=== PATIENT | male | born 1980 ===

== ENCOUNTER 2018-03-02 15:26 | Emergency (ER) | payer MEDICAID ==
[2018-03-02 15:26] VITALS: BMI 28.2
[2018-03-02 16:09] VITALS: BP 138/78; TEMP 97.7; O2SAT 98
--- NOTE | 2018-03-02 18:17 | ED PDOC ---
HPI: General Adult Time Seen by Provider: 03/02/18 17:12 Chief Complaint (Nursing): Cough, Cold, Congestion Chief Complaint (Provider): Cough History Per: Patient History/Exam Limitations: no limitations Onset/Duration Of Symptoms: Days (x4) Current Symptoms Are (Timing): Still Present Additional Complaint(s): 37 year old male presented to ED with complaints of productive cough with white sputum. He states that he uses promethazine with codeine which usually helps his cough. Denies hemoptysis, SOB, and fever. PCP: none provided Past Medical History Reviewed: Historical Data, Nursing Documentation, Vital Signs Vital Signs: Last Vital Signs Temp 97.7 F 03/02/18 16:06 Pulse Resp BP 138/78 03/02/18 16:06 Pulse Ox 98 03/02/18 19:29 - Medical History PMH: Anemia (transfusion x2), Anxiety, Back Problems, Colonic Polyps, Crohn's Disease, Depression, Gastritis, Malignancy, Seizures (Secondary to Xanax use) Denies: Diabetes, Hepatitis, HIV, HTN, Chronic Kidney Disease, Sexually Transmitted Disease - Surgical History Surgical History: No Surg Hx - Family History Family History: States: Unknown Family Hx - Social History Current smoker - smoking cessation education provided: Yes (>10 cigarettes daily ) Alcohol: None - Immunization History Hx Tetanus Toxoid Vaccination: No Hx Influenza Vaccination: Yes Hx Pneumococcal Vaccination: No - Home Medications Home Medications: Ambulatory Orders Medication Instructions Recorded Famotidine 20 mg PO DAILY 09/16/17 oxyCODONE/Acetaminophen [Percocet 1 tab PO Q6H 09/16/17 5/325 mg Tab] Alprazolam [Xanax] 0.5 mg PO BID 02/11/18 fentaNYL 25 mcg/hr [Duragesic 02/11/18 Patch 25 mcg/hr] Mirtazapine [Remeron] 30 mg PO HS #30 tab 02/15/18 Pantoprazole [Protonix EC Tab] 40 mg PO DAILY #30 ect 02/15/18 - Allergies Allergies/Adverse Reactions: Allergies Allergy/AdvReac Type Severity Reaction Status Date / Time ketorolac tromethamine Allergy Intermediate SWELLING Verified 03/02/18 16:06 [From Toradol] acetaminophen Allergy Mild RASH Verified 03/02/18 16:06 [From Tylenol-Codeine #3] codeine Allergy Mild RASH Verified 03/02/18 16:06 [From Tylenol-Codeine #3] tramadol AdvReac NAUSEA Verified 03/02/18 16:06 Review of Systems ROS Statement: Except As Marked, All Systems Reviewed And Found Negative Constitutional: Negative for: Fever Respiratory: Positive for: Cough (with white sputum). Negative for: Shortness of Breath, Hemoptysis Physical Exam - Reviewed Nursing Documentation Reviewed: Yes Vital Signs Reviewed: Yes - Physical Exam Appears: Positive for: Non-toxic, No Acute Distress Head Exam: Positive for: ATRAUMATIC, NORMAL INSPECTION, NORMOCEPHALIC Skin: Positive for: Normal Color, Warm, Dry Eye Exam: Positive for: Normal appearance, EOMI, PERRL ENT: Positive for: Normal ENT Inspection Neck: Positive for: Normal, Painless ROM Cardiovascular/Chest: Positive for: Regular Rate, Rhythm Respiratory: Positive for: Normal Breath Sounds Gastrointestinal/Abdominal: Positive for: Normal Exam, Soft. Negative for: Tenderness Back: Positive for: Normal Inspection. Negative for: L CVA Tenderness, R CVA Tenderness Extremity: Positive for: Normal ROM (upper/lower) Neurologic/Psych: Positive for: Alert, Oriented (x3) - ECG O2 Sat by Pulse Oximetry: 98 (RA) Pulse Ox Interpretation: Normal - Progress ED Course And Treament: Patient searched on [facility] and indicates that on 02/22, he had a prescription filled for fentanyl for 10 days. On 02/21 he had #50 of oxycodone and #20 of alprazolam 5mg prescribed. On 02/20 he had #240 and 02/06 he had #120 of promethazine with codeine prescribed. Patient receives narcotic medications on a monthly basis. Previous records indicate that on 02/11/18, he was admitted into [facility] for opioid addiction. Pt. requesting promethazine/codeine. Pt. was informed that he will be treated for his symptoms but will not be getting any narcotics. Pt. left ED irrate and refused to wait for Rx. Medical Decision Making Medical Decision Making: Initial Impression: Productive cough Initial Plan: Chest X-ray 18:22 Chest X-ray FINDINGS: LUNGS: No active pulmonary disease. PLEURA: No significant pleural effusion identified. No pneumothorax apparent. CARDIOVASCULAR: No radiographic findings to suggest acute or significant cardiovascular disease. Venous access catheters right subclavian insertion identified. The tech left is seen in the medial aspect of the left subclavian vein. OSSEOUS STRUCTURES: No significant abnormalities. VISUALIZED UPPER ABDOMEN: Normal. OTHER FINDINGS: None. IMPRESSION: No active pulmonary disease. Venous access catheter inserted venous right subclavian approach identified, the tip is in the medial aspect of the left subclavian vein. Scribe Attestation: Documented by Jorge Luis Benton acting as a scribe for Addi Jerry Provider Scribe Attestation: All medical record entries made by the Scribe were at my direction and personally dictated by me. I have reviewed the chart and agree that the record accurately reflects my personal performance of the history, physical exam, medical decision making, and the department course for this patient. I have also personally directed, reviewed, and agree with the discharge instructions and disposition. Disposition - Clinical Impression Clinical Impression: Acute bronchitis - Patient ED Disposition Is Patient to be Admitted: No - Disposition Disposition: Left W/O Treatment Disposition Time: 18:20 Condition: STABLE Forms: [employer] (Croatian)
--- NOTE | 2018-03-02 18:24 | RAD ---
HISTORY: Cough. COMPARISON: No prior. TECHNIQUE: Chest PA and lateral FINDINGS: LUNGS: No active pulmonary disease. PLEURA: No significant pleural effusion identified. No pneumothorax apparent. CARDIOVASCULAR: No radiographic findings to suggest acute or significant cardiovascular disease. Venous access catheters right subclavian insertion identified. The tech left is seen in the medial aspect of the left subclavian vein. OSSEOUS STRUCTURES: No significant abnormalities. VISUALIZED UPPER ABDOMEN: Normal. OTHER FINDINGS: None. IMPRESSION: No active pulmonary disease. Venous access catheter inserted venous right subclavian approach identified, the tip is in the medial aspect of the left subclavian vein.
== END 2018-03-02 18:45 | disposition left against medical advice (07) ==
LOC: H.ER 15:26
DX: J20.9 Acute bronchitis, unspecified (principal); F32.9 Major depressive disorder, single episode, unspecified; F41.9 Anxiety disorder, unspecified; K50.90 Crohn's disease, unspecified, without complications; Z45.2 Encounter for adjustment and management of vascular access device

== ENCOUNTER 2018-03-09 23:06 | Emergency (ER) | payer MEDICAID ==
[2018-03-09 23:06] VITALS: BMI 28.2
[2018-03-09 23:18] VITALS: BP 126/74; PULSE 84; RESP 16; TEMP 98; O2SAT 96
[2018-03-09] MEDS ORDERED: Albuterol-Ipratrop 3 mg / 0.5 (3 ml) UD INH STA (23:23)
--- NOTE | 2018-03-09 23:26 | ED PDOC ---
HPI: General Adult Time Seen by Provider: 03/09/18 23:24 Chief Complaint (Nursing): Cough, Cold, Congestion Chief Complaint (Provider): COUGH History Per: Patient (37 Y/O MALE HERE WITH COUGH X 2 WEEKS ASSOCIATED WITH FACIAL PAIN. DENIES ANY FEVERS/CHILLS. NOTES COUGHING MILDLY PRODUCTIVE WITH DISCOLORED SPUTUM. DENIES ANY H/O ALLERGIES. DENIES ANY H/O SMOKING.) Past Medical History Reviewed: Historical Data, Nursing Documentation, Vital Signs Vital Signs: Last Vital Signs Temp 98.0 F 03/09/18 23:16 Pulse 84 03/09/18 23:16 Resp 16 03/09/18 23:16 BP 126/74 03/09/18 23:16 Pulse Ox 96 03/09/18 23:26 - Medical History PMH: Anemia (transfusion x2), Anxiety, Back Problems, Colonic Polyps, Crohn's Disease, Depression, Gastritis, Malignancy, Seizures (Secondary to Xanax use) Denies: Diabetes, Hepatitis, HIV, HTN, Chronic Kidney Disease, Sexually Transmitted Disease - Family History Family History: States: Unknown Family Hx - Immunization History Hx Tetanus Toxoid Vaccination: No Hx Influenza Vaccination: Yes Hx Pneumococcal Vaccination: No - Home Medications Home Medications: Ambulatory Orders Medication Instructions Recorded Famotidine 20 mg PO DAILY 09/16/17 oxyCODONE/Acetaminophen [Percocet 1 tab PO Q6H 09/16/17 5/325 mg Tab] Alprazolam [Xanax] 0.5 mg PO BID 02/11/18 fentaNYL 25 mcg/hr [Duragesic 02/11/18 Patch 25 mcg/hr] Mirtazapine [Remeron] 30 mg PO HS #30 tab 02/15/18 Pantoprazole [Protonix EC Tab] 40 mg PO DAILY #30 ect 02/15/18 Albuterol HFA [Ventolin HFA 90 2 puff [id number] [id number] PRN #1 inh 03/09/18 mcg/actuation (8 g)] Azithromycin [Zithromax Tri-Delbert] 500 mg PO DAILY #3 tablet 03/09/18 Guaifenesin [Adult Tussin Chest 20 ml PO Q6 PRN #300 ml 03/09/18 Congestion] predniSONE [Prednisone] 3 tab PO DAILY #12 tab 03/09/18 - Allergies Allergies/Adverse Reactions: Allergies Allergy/AdvReac Type Severity Reaction Status Date / Time ketorolac tromethamine Allergy Intermediate SWELLING Verified 03/02/18 16:06 [From Toradol] tramadol AdvReac NAUSEA Verified 03/02/18 16:06 Review of Systems ROS Statement: Except As Marked, All Systems Reviewed And Found Negative Physical Exam - Reviewed Nursing Documentation Reviewed: Yes Vital Signs Reviewed: Yes - Physical Exam Appears: Positive for: Well, Non-toxic, No Acute Distress Head Exam: Positive for: ATRAUMATIC, NORMAL INSPECTION, NORMOCEPHALIC Skin: Positive for: Normal Color, Warm, DRY Eye Exam: Positive for: EOMI, Normal appearance, PERRL ENT: Positive for: Normal ENT Inspection Neck: Positive for: Normal, Painless ROM Cardiovascular/Chest: Positive for: Regular Rate, Rhythm Respiratory: Positive for: Wheezing Gastrointestinal/Abdominal: Positive for: Normal Exam, Soft Back: Positive for: Normal Inspection Extremity: Positive for: Normal ROM Neurologic/Psych: Positive for: Alert, Oriented - ECG O2 Sat by Pulse Oximetry: 96 - Progress ED Course And Treament: PREDNISONE 60 MG DUONEB X 1 DOSE Disposition - Clinical Impression Clinical Impression: Asthmatic bronchitis - Patient ED Disposition Is Patient to be Admitted: No - Disposition Disposition: Routine/Home Disposition Time: 00:01 Condition: FAIR Prescriptions: Albuterol HFA [Ventolin HFA 90 mcg/actuation (8 g)] 2 puff IH [id number] PRN #1 inh PRN Reason: Shortness Of Breath Azithromycin [Zithromax Tri-Delbert] 500 mg PO DAILY #3 tablet Guaifenesin [Adult Tussin Chest Congestion] 20 ml PO Q6 PRN #300 ml PRN Reason: Cough predniSONE [Prednisone] 3 tab PO DAILY #12 tab Instructions: Acute Bronchitis, Adult (DC) Forms: [employer] (Tanzanian)
[2018-03-09] MEDS ORDERED: Albuterol-Ipratrop 3 mg / 0.5 (3 ml) UD ONE (23:33)
== END 2018-03-10 00:05 | disposition home or self-care (01) ==
LOC: H.ER 23:06
DX: J45.909 Unspecified asthma, uncomplicated (principal); F32.9 Major depressive disorder, single episode, unspecified; F41.9 Anxiety disorder, unspecified; K50.90 Crohn's disease, unspecified, without complications

== ENCOUNTER 2018-04-10 12:21 | Emergency (ER) | payer MEDICAID ==
[2018-04-10 12:21] VITALS: BMI 28.2
[2018-04-10 14:05] LABS: BASO % 0.5 % (0.0-2.0); EOS # 0.3 K/uL (0.0-0.7); EOS % 4.6 % (0.0-4.0); HEMOGLOBIN 11.4 g/dL (12.0-18.0); LYMPH # 1.7 K/uL (1.0-4.3); LYMPH % 23.8 % (20.0-40.0); MEAN CELL VOLUME 85.1 fl (80.0-94.0); MEAN CORPUSCULAR HEMOGLOBIN 28.4 pg (27.0-31.0); MEAN CORPUSCULAR HGB CONC 33.4 g/dL (33.0-37.0); MEAN PLATELET VOLUME 8.1 fl (7.2-11.7); MONO # 0.6 K/uL (0.0-0.8); MONO % 8.4 % (0.0-10.0); NEUT # 4.5 K/uL (1.8-7.0); NEUT % 62.7 % (50.0-75.0); RED CELL DISTRIBUTION WIDTH 15.9 % (11.5-14.5); WHITE BLOOD COUNT 7.1 K/uL (4.8-10.8)
[2018-04-10 14:20] LABS: BLOOD UREA NITROGEN 15 mg/dl (9-20); CALCIUM 8.8 mg/dL (8.4-10.2); GFR AFRICAN-AMERICAN > 60; GFR NON-AFRICAN AMERICAN > 60
[2018-04-10 14:26] VITALS: TEMP 97.8
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
[2018-04-10] MEDS ORDERED: Potassium Chloride 20 mEq ER Tab PO ONE ×2 (16:11→20:09)
[2018-04-10 20:11] VITALS: PULSE 86; RESP 17
[2018-04-10 20:12] VITALS: BP 124/70
--- NOTE | 2018-04-10 20:29 | ED PDOC ---
- Laboratory Results Result Diagrams: 04/10/18 13:37 04/10/18 13:56 - ECG O2 Sat by Pulse Oximetry: 96 - Progress Re-evaluation Time: 20:27 Condition: Improved (Awake alert oriented x 3 no focal neuro deficits) Disposition - Clinical Impression Clinical Impression: Drug abuse - POA Present On Arrival: None - Disposition Referrals: [facility] [Outside] Disposition: Routine/Home Disposition Time: 20:28 Condition: FAIR Instructions: Drug Abuse and Drug Addiction (DC) Forms: [employer] (Cape Verdean)
[2018-04-11 15:01] VITALS: O2SAT 100
== END 2018-04-10 20:55 | disposition home or self-care (01) ==
LOC: H.ER 12:21
DX: F19.10 Other psychoactive substance abuse, uncomplicated (principal); F10.10 Alcohol abuse, uncomplicated; F17.200 Nicotine dependence, unspecified, uncomplicated; F32.9 Major depressive disorder, single episode, unspecified; F41.9 Anxiety disorder, unspecified; K50.90 Crohn's disease, unspecified, without complications

== ENCOUNTER 2018-04-12 01:37 | Emergency (ER) | payer MEDICAID ==
[2018-04-12 01:37] VITALS: BMI 28.2
[2018-04-12 01:49] VITALS: RESP 18
[2018-04-12] MEDS ORDERED: Albuterol-Ipratrop 3 mg / 0.5 (3 ml) UD IH STA (01:57)
--- NOTE | 2018-04-12 02:01 | ED PDOC ---
HPI: General Adult Time Seen by Provider: 04/12/18 01:48 Chief Complaint (Nursing): Medical Clearance Chief Complaint (Provider): clearance History Per: Patient History/Exam Limitations: no limitations Additional Complaint(s): 37 y/o male here in police custody for medical and psychiatric clearance for incarceration. Patient states he has stage 3 colon cancer; receives chemotherapy treatments twice a month in [place]. Patient states he is prescribed pain medications but chooses to snort heroin daily instead because the pills don't do anything for him. Denies fever, nausea/vomiting, abdominal pain, changes in bowel movements, suicidal/homicidal ideations. Past Medical History Reviewed: Historical Data, Nursing Documentation, Vital Signs Vital Signs: Last Vital Signs Temp 98.2 F 04/12/18 01:41 Pulse 70 04/12/18 01:41 Resp 18 04/12/18 01:41 BP 144/90 04/12/18 01:41 Pulse Ox 96 04/12/18 02:02 - Medical History PMH: Anemia (transfusion x2), Anxiety, Back Problems, Colonic Polyps, Crohn's Disease, Depression, Gastritis, Malignancy, Seizures (Secondary to Xanax use) Denies: Diabetes, Hepatitis, HIV, HTN, Chronic Kidney Disease, Sexually Transmitted Disease - Family History Family History: States: Unknown Family Hx - Immunization History Hx Tetanus Toxoid Vaccination: No Hx Influenza Vaccination: Yes Hx Pneumococcal Vaccination: No - Home Medications Home Medications: Ambulatory Orders Medication Instructions Recorded Famotidine 20 mg PO DAILY 09/16/17 oxyCODONE/Acetaminophen [Percocet 1 tab PO Q6H 09/16/17 5/325 mg Tab] Alprazolam [Xanax] 0.5 mg PO BID 02/11/18 fentaNYL 25 mcg/hr [Duragesic 02/11/18 Patch 25 mcg/hr] Mirtazapine [Remeron] 30 mg PO HS #30 tab 02/15/18 Pantoprazole [Protonix EC Tab] 40 mg PO DAILY #30 ect 02/15/18 Albuterol HFA [Ventolin HFA 90 2 puff IH [id number] PRN #1 inh 03/09/18 mcg/actuation (8 g)] Azithromycin [Zithromax Tri-Delbert] 500 mg PO DAILY #3 tablet 03/09/18 Guaifenesin [Adult Tussin Chest 20 ml PO Q6 PRN #300 ml 03/09/18 Congestion] predniSONE [Prednisone] 3 tab PO DAILY #12 tab 03/09/18 Benzonatate [Tessalon Perle] 100 mg PO Q8 #15 capsule 04/10/18 - Allergies Allergies/Adverse Reactions: Allergies Allergy/AdvReac Type Severity Reaction Status Date / Time ketorolac tromethamine Allergy Intermediate SWELLING Verified 03/02/18 16:06 [From Toradol] tramadol AdvReac NAUSEA Verified 03/02/18 16:06 Review of Systems ROS Statement: Except As Marked, All Systems Reviewed And Found Negative Physical Exam - Reviewed Nursing Documentation Reviewed: Yes Vital Signs Reviewed: Yes - Physical Exam Appears: Positive for: Well, Non-toxic, No Acute Distress Head Exam: Positive for: ATRAUMATIC, NORMAL INSPECTION, NORMOCEPHALIC Skin: Positive for: Normal Color Eye Exam: Positive for: Normal appearance ENT: Positive for: Normal ENT Inspection Cardiovascular/Chest: Positive for: Regular Rate, Rhythm Respiratory: Positive for: Normal Breath Sounds Gastrointestinal/Abdominal: Positive for: Normal Exam Extremity: Positive for: Normal ROM Neurologic/Psych: Positive for: Alert, Oriented - ECG O2 Sat by Pulse Oximetry: 96 - Progress ED Course And Treament: Patient evaluated by day worker; does not meet criteria for admission at this time as per Dr. Roberts Disposition - Clinical Impression Clinical Impression: Substance abuse, Adjustment disorder with depressed mood - Patient ED Disposition Is Patient to be Admitted: No - Disposition Disposition: Discharged/Transfer to Law Enforcement Disposition Time: 02:24 Condition: STABLE Additional Instructions: Patient medically and psychiatrically cleared for incarceration Instructions: Drug Abuse and Drug Addiction (DC), Adjustment Disorder
[2018-04-12 02:54] VITALS: BP 136/82; PULSE 74; TEMP 98.4
[2018-04-12 02:58] VITALS: O2SAT 96
== END 2018-04-12 02:54 ==
LOC: H.ER 01:37
DX: F43.21 Adjustment disorder with depressed mood (principal); F11.10 Opioid abuse, uncomplicated; K50.90 Crohn's disease, unspecified, without complications; C18.9 Malignant neoplasm of colon, unspecified; F41.9 Anxiety disorder, unspecified; D64.9 Anemia, unspecified